=== PATIENT | female | born 1950 | race Caucasian/White ===

== ENCOUNTER → 2016-04-19 | Day surgery (SDC) | payer MEDICARE ==
[~2016-04-19] MED LIST: ASPI325T PO; BUPIVACAINE/EPINEPHRINE 0.5% PF 30 ML VIAL ONE; COUM5TAB; FEXO180 PO; KETOROLAC TROMETHAMINE 30 MG/ML (IVP) VIAL ONE; LACTATED RINGER'S 1000 ML INJ 1,000 ML ONE; LEVO88TA2 PO; LIDOCAINE 1%/EPINEPHrine 1:100,000 SOLN 20 ML VIAL ONE; METO50TA PO; MIDAZOLAM HCL 2 MG/2 ML VIAL ONE; NEOMYCIN/POLYMYXIN/BACITRACIN OINT 15 GM TUBE ONE; OMEP20TA PO; PROPOFOL 200 MG/20 ML AMP IV ONE; SIMV40TA PO; SODIUM CHLORIDE 0.9% 250 ML ADDBAG IV ONE; VANCOMYCIN HCL 1000 MG VIAL ONE
--- NOTE | 2016-04-19 13:46 | TN ---
cc: MATEUSZ SMITH M.D. DATE OF SURGERY 04/19/2016 PREOPERATIVE DIAGNOSIS Malignant melanoma to the right posterior calf POSTOPERATIVE DIAGNOSIS Malignant melanoma to the right posterior calf PROCEDURE Wide excision melanoma posterior calf, double layer closure 5 x 9 cm defect after a wide excision to obtain clear margins. ANESTHESIA General SURGEON Dr. Smith EMBEDDED SOFTWARE MANAGER Miss Betsy Mina, advanced registered nurse practitioner The MOBILITY SCOOTER REPAIRER was present from beginning to the end of the case assisting in all portions of the procedure. It was necessary to have this individual in the room to assist in the above surgical procedure. The surgical procedure was assisted by the MOBILITY SCOOTER REPAIRER. The MOBILITY SCOOTER REPAIRER presence was necessary throughout the case for appropriate retraction, dissection, visualization, and resection of the important anatomical structures during the surgical procedure. The MOBILITY SCOOTER REPAIRER was assisting throughout the entirety of the operation. The skill set of the MOBILITY SCOOTER REPAIRER is medically and surgically necessary to safely complete the surgical procedure. During the surgical case the operating room gastroenterology technician was working instrument table and passing instruments to the attending surgeon and MOBILITY SCOOTER REPAIRER The MOBILITY SCOOTER REPAIRER was directly assisting the operating surgeon and involved in the technical aspects of the surgical case. INDICATIONS This is a pleasant 65-year-old female who has a melanoma to the right posterior calf. She initially was seen and arrangements were made for sentinel node and wide excision to properly stage her and properly treat her, however, she declines sentinel node biopsy. She appeared to understand. PROCEDURE The patient taken to the operating room, placed in the supine position. After anesthesia, her right posterior calf was prepped with Betadine. Time-out was done. She was given preoperative antibiotics. An elliptical incision oriented in a horizontal fashion along the long axis of the posterior calf was made to obtain 2 cm margins circumferentially around the lesion creating a defect of 5 x 9 cm. The specimen is removed. A stitch was placed at the 12 o'clock position for orientation. We then created flaps medially and laterally to reapproximate the deep layer with 3-0 Vicryl and skin was reapproximated with interrupted 3-0 nylons suture. A sterile bandage was applied. The patient tolerated the procedure well and had no immediate postop complications. MD CARLOS Brice/WILBERTO /1:37 PM /1:41 PM [place]
== END | disposition home or self-care (01) ==
LOC: ESDC 10:51
PROVIDERS: ATTEND Surgery
DX: C43.71 Malignant melanoma of right lower limb, including hip (principal)
CPT/HCPCS: 00400; 11606; 12034; 88305; J1885; J2250; J3010; J3370; J7120